=== PATIENT | male | born 1975 | race Caucasian/White ===

== ENCOUNTER 2016-11-03 21:43 | Emergency (ER) | payer OTHER ==
[2016-11-03 21:54] VITALS: BP 132/74; PULSE 65; RESP 16; TEMP 98.2; O2SAT 98
--- NOTE | 2016-11-03 21:55 | EDPHY ---
H & P Time Seen by Provider: 11/03/16 21:47 HPI/ROS: 41-year-old male presents complaining bump/red area on his pack that he noticed today, he has been working in the [employer] over the weekend including working with a lot of mulch today. No fevers or chills. Area is very itchy. Review of systems As per HPI General no fever no chills no weakness HEENT no eye pain no eye discharge. No eye redness, no sore throat Respiratory no cough, no shortness of breath Cardiac no chest pain, no peripheral edema GI no abdominal pain, no diarrhea, no constipation, no nausea, no vomiting no flank pain, no hematuria, no dysuria Musculoskeletal no myalgias, no joint pain Heme no easy bruising, no easy bleeding Endo no polyuria, no polydipsia Skin positive rashes, no pruritus Neuro no syncope, no dizziness, no headaches Psych is no suicidal ideation, no homicidal ideation Past Medical/Surgical History: Noncontributory Social History: Denies excessive alcohol or drug use Smoking Status: Never smoked Physical Exam: 41-year-old male Alert and oriented in no acute distress nontoxic appearance, afebrile Atraumatic normocephalic Neck no JVD Lungs clear to auscultation, no respiratory distress Heart regular rate and rhythm Back right upper back, 4 cm area with erythema with central punctum, no fluctuance no drainage Area blanches, right at area of central punctum approximately 5 mm area of induration No satellite lesions, no vesicles no drainage Extremities no cyanosis clubbing edema Constitutional: Initial Vital Signs Temperature (C) 36.8 C 11/03/16 21:51 Heart Rate 65 11/03/16 21:51 Respiratory Rate 16 11/03/16 21:51 Blood Pressure 132/74 H 11/03/16 21:51 O2 Sat (%) 98 11/03/16 21:51 O2 Delivery Mode Room Air Allergies/Adverse Reactions: No Known Allergies Allergy (Unverified 11/03/16 21:56) Home Medications: Medication Instructions Recorded NK [No Known Home Meds] 11/03/16 Medical Decision Making ED Course/Re-evaluation: Patient seen and evaluated for bump/rash on back of 1 day's duration Differential diagnosis Abscess, carbuncle, insect bite, shingles Impression Likely insect bite with localized allergic reaction Plan Ice, ibuprofen Benadryl and/or hydrocortisone cream/ointment to area Avoid soaking in hot water or hot shower to that area Return for signs of infection including worsening redness, drainage, pus, fevers chills Departure - Departure Disposition: Home, Routine, Self-Care Clinical Impression: Insect bite Condition: Good Instructions: Insect Bite or Sting (ED) Additional Instructions: Do not soak the area in hot water no hot bath no hot showers until improving May apply ice, may take ibuprofen for pain or inflammation, may take diphenhydramine/Benadryl for what appears to be a local allergic reaction to an insect sting You may also apply [id number] diphenhydramine cream Back/ointment, as well as hydrocortisone cream Back/ointment Return for any concerning signs for infection such as high fever, pus draining from wound worsening redness severe pain Referrals: TRA FUENTES [Primary Care Provider] - As per Instructions
== END 2016-11-03 22:15 | disposition home or self-care (01) ==
LOC: CED 21:43
DX: S20.461A Insect bite (nonvenomous) of right back wall of thorax, initial encounter (principal); W57.XXXA Bitten or stung by nonvenomous insect and other nonvenomous arthropods, initial encounter; Y92.89 Other specified places as the place of occurrence of the external cause; Y93.89 Activity, other specified